=== PATIENT | female | born 1980 | race Caucasian/White ===

== ENCOUNTER 2017-08-03 10:46 | Emergency (ER) | payer BC, OTHER ==
--- NOTE | 2017-08-03 10:53 | PDOC ---
History of Present Illness - General Chief Complaint: Cold Symptoms Stated Complaint: flu,urinary symptoms Time Seen by Provider: 08/03/17 10:52 - History of Present Illness Initial Comments: 08/03/17 11:48 Chief complaint: Flu symptoms including nonproductive cough, body aches. Lives in household with cases of documented influenza History of present illness: Symptoms as above for 2 days. Review of systems: Denies fever, nausea, vomiting, abdominal pain, chest pain, shortness of breath Past medical history: Healthy, no current medical or surgical problems Social history: To members of family have documented influenza. No tobacco alcohol or nonprescription drugs Family history as above otherwise negative Physical exam: Alert and oriented well-developed well-nourished no acute distress cooperative Afebrile, vital signs normal HEENT clear Neck supple without bruit mass or nodes Chest clear CV regular without murmur or gallop Abdomen benign Skin clear, no rash, adequate turgor and wet mucous membranes Impression: Viral URI, rule out strep, probable influenza Plan: Symptomatic treatment and further medical management depending on results. Past History - Past Medical History Allergies/Adverse Reactions: Allergies Allergy/AdvReac Type Severity Reaction Status Date / Time amoxicillin Allergy Severe Unverified 08/30/16 13:19 rash in folds poison michelle extract Allergy Unverified 11/13/13 12:04 [Poison Michelle Extract] bee stings Allergy Severe Throat Uncoded 11/13/13 12:04 swelling, hives trees Allergy Uncoded 08/30/16 13:19 Home Medications: Ambulatory Orders Oseltamivir Phosphate [Tamiflu] 75 mg PO BID #10 capsule 08/03/17 Medical Decision Making - Medical Decision Making 08/03/17 11:50 Strep screen is negative Rest fluids Tylenol and Tamiflu as directed. Recheck immediately if symptoms worsen. *DC/Admit/Observation/Transfer Diagnosis at time of Disposition: Viral upper respiratory infection - Discharge Dispostion Disposition: HOME Condition at time of disposition: Stable Admit: No - Prescriptions Prescriptions: Oseltamivir Phosphate [Tamiflu] 75 mg PO BID #10 capsule - Referrals - Patient Instructions Printed Discharge Instructions: DI for Viral Upper Respiratory Infection -- Adult - Post Discharge Activity Forms/Work/School Notes: Back to Work
[2017-08-03 11:04] LABS: PH,URINE 7.5 (4.5-8); URINE APPEARANCE Clear; URINE BILIRUBIN Negative (NEGATIVE); URINE BLOOD Negative (NEGATIVE); URINE COLOR AMBER; URINE GLUCOSE (UA) Negative (NEGATIVE); URINE KETONE Negative (NEGATIVE); URINE LEUK ESTERASE 1+ (NEGATIVE); URINE NITRITE Negative (NEGATIVE); URINE PROTEIN Negative (NEGATIVE); URINE UROBILINOGEN 0.2 (0.2-1.0)
[2017-08-03 11:16] LABS: EPI CELLS MODERATE /HPF
[2017-08-03 11:28] VITALS: BP 120/77; PULSE 74; TEMP 98.6; BMI 30.3
== END 2017-08-03 11:59 | disposition home or self-care (01) ==
LOC: FER 10:46
DX: J06.9 Acute upper respiratory infection, unspecified (principal); B97.89 Other viral agents as the cause of diseases classified elsewhere
CPT/HCPCS: 81003; 81015; 84703; 87070; 87430; 99281-25